=== PATIENT | male | born 2000 | race Caucasian/White ===

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

== ENCOUNTER → 2022-01-01 07:12 | Outpatient (CLI) | payer OTHER, SELFPAY ==
[2022-01-01 08:08] LABS: COVID19 -Nasal RAPID Negative (Negative)
== END ==
PROVIDERS: Family Provider Family Medicine; PCP Registered Nurse Diabetes Educator; Visit Provider Physician Assistant
DX: Z20.822 Contact with and (suspected) exposure to COVID-19 (principal)
CPT/HCPCS: 87635

== ENCOUNTER → 2022-01-05 12:00 | Outpatient (CLI) | payer OTHER, SELFPAY | PROVIDERS: Family Provider Family Medicine; PCP Registered Nurse Diabetes Educator; Visit Provider Nurse Practitioner Family | DX: J02.9 Acute pharyngitis, unspecified (principal) | CPT/HCPCS: 87070 ==

== ENCOUNTER → 2022-03-06 18:03 | Outpatient (CLI) | payer OTHER, SELFPAY ==
[2022-03-06 19:26] LABS: Influenza A - CEPHEID Flu A NEGATIVE (NEGATIVE); Influenza B - CEPHEID Flu B NEGATIVE (NEGATIVE)
[2022-03-06 19:32] LABS: COVID-19 CEPHEID PCR (VTM/NP) POSITIVE (Negative)
== END ==
PROVIDERS: Family Provider Family Medicine; PCP Registered Nurse Diabetes Educator; Visit Provider Nurse Practitioner Family
DX: U07.1 COVID-19 (principal); R05.9 Cough, unspecified
CPT/HCPCS: 0240U

== ENCOUNTER → 2022-03-06 18:11 | Outpatient (CLI) | payer OTHER, SELFPAY ==
--- NOTE | 2022-03-06 18:13 | DI.RAD.S_ITS ---
PROCEDURE: XR CHEST 2V INDICATIONS: cough TECHNIQUE: 2 views of the chest were acquired. COMPARISON: [facility], , CHEST 2 VIEW, 12/27/2015, 19:12. FINDINGS: Surgical changes and devices: None. Lungs and pleura: Lungs are clear. No pleural effusions or pneumothorax. Mediastinum: Mediastinal contours are normal. Heart size is normal. Bones and chest wall: No suspicious bony abnormalities. Soft tissues appear unremarkable. IMPRESSION: No acute cardiopulmonary disease. Dictated by: Smita Lowe M.D. on 03/06/2022 at 20:46 Approved by: Smita Lowe M.D. on 03/06/2022 at 20:46
== END ==
PROVIDERS: Family Provider Family Medicine; PCP Registered Nurse Diabetes Educator; Referring Provider Nurse Practitioner Family; Visit Provider Nurse Practitioner Family
DX: U07.1 COVID-19 (principal); R05.9 Cough, unspecified
CPT/HCPCS: 0240U; 71046

== ENCOUNTER 2022-07-21 17:44 | Emergency (ER) | payer OTHER, SELFPAY ==
--- NOTE | 2022-07-21 17:51 | DI.RAD.S_ITS ---
PROCEDURE: XR CHEST 1V INDICATIONS: Cough TECHNIQUE: One view of the chest was acquired. COMPARISON: [facility], CHEST 2 VIEW, 12/27/2015, 19:12. [facility], , XR CHEST 2V, 03/06/2022, 18:08. FINDINGS: Surgical changes and devices: None. Lungs and pleura: Lungs are clear. No pleural effusions or pneumothorax. Mediastinum: Mediastinal contours appear normal. Heart size is normal. Bones and chest wall: No suspicious bony lesions. Overlying soft tissues appear unremarkable. IMPRESSION: No significant plain film abnormality is identified. Dictated by: Jamie Guerra M.D. on 07/21/2022 at 17:38 Approved by: Jamie Guerra M.D. on 07/21/2022 at 17:38
[2022-07-21 18:03] VITALS: BP 128/86; PULSE 59; RESP 20; TEMP 36.6; O2SAT 99; BMI 27.3
--- NOTE | 2022-07-21 18:42 | PC.NURSE ---
COPPER exposure Spoke w/ poison control who states: low risk because it has to be at a high temp to volitize. Local irritation only expected. Supportive care. 02 prn, Use inhaled albuterol, systemic cortico steroids if severe bronchospasm. Eye exam, eye flush.
--- NOTE | 2022-07-21 19:09 | ED.GENADULT ---
HPI - General Adult General Chief complaint: Environmental Exposure Stated complaint: David exposure cough Time Seen by Provider: 07/21/22 18:45 Source: patient Mode of arrival: Family Vehicle History of Present Illness HPI narrative: Patient is a otherwise healthy 22-year-old male. Approximately 4 days ago while at work he was exposed to copper paint. 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 There was a boat that had a tent around the bottom of it and had had pain that contained copper sand off of it. He states he had to go inside the tendon order to move the boat. He states that while doing that 1 of the straps caused some of the powder/paint that was on the ground to come up. Since that time he has had some eye irritation but he states that is currently better. He also feels some heaviness in his chest. He also touched the paint. He has been no skin rashes. He is here today for evaluation. Related Data Home Medications Medication Instructions Recorded Confirmed cholecalciferol (vitamin D3) 125 125 mcg PO DAILY 09/24/21 01/05/22 mcg (5,000 unit) capsule cyanocobalamin (vitamin B-12) 1,000 mcg PO DAILY 09/24/21 01/05/22 1,000 mcg capsule Allergies Allergy/AdvReac Type Severity Reaction Status Date / Time Penicillins Allergy Verified 07/21/22 18:02 Review of Systems Review of Systems ROS Unobtainable: All systems reviewed & are unremarkable except as noted in HPI and below Patient History Medical History Adolescent idiopathic scoliosis of cervicothoracic region (10/15/17) Atypical chest pain Bilateral varicoceles Concussion Pelvic pain in male Surgical History Hx of tonsillectomy No history of previous surgery Family History Mother Age: 43 Heart trouble Grandmother Thyroid disorder Social History marital status: unmarried,single occupational status: employed 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 Smoking Status: Never smoker alcohol intake: never caffeine: No Type(s) of exercise: weight lifting frequency: 5-6 times per week duration: 45-60 minutes/day Smoking Status: Never smoker alcohol intake frequency: 0-2 drinks per day Substance Use Type: does not use Exam Initial Vital Signs Initial Vital Signs: Vital Signs Temperature 97.9 F 07/21/22 18:03 Pulse Rate 59 L 07/21/22 18:03 Respiratory Rate 20 07/21/22 18:03 Blood Pressure 128/86 07/21/22 18:03 Pulse Oximetry 99 07/21/22 18:03 Oxygen Delivery Method 07/21/22 18:03 Const General: cooperative HENMT Head: normal to inspection and normocephalic Eyes General: Yes appearance normal, both eyes and all related structures Resp Effort & Inspection: normal respiratory effort Auscultation: clear to auscultation bilaterally Cardio Rate: regular rate Rhythm: regular rhythm Skin General: no rashes or lesions noted Neuro General: patient alert, patient awake and moves all extremities Extrem General: normal to inspection and capillary refill normal Psych Appearance: grossly normal and well kempt Course Orders Ordered: Discontinued Medications Albuterol (Albuterol Hfa Mdi 60 Puff/8 Gm Inhaler) 2 puff INH NOW ONE Stop: 07/21/22 19:11 Last Admin: 07/21/22 19:34 Dose: 2 puff Documented By: CANDACE Vital Signs Vital signs: Vital Signs - 8 hr 07/21/22 18:03 Temperature 97.9 F Pulse Rate 59 L Respiratory Rate 20 Blood Pressure 128/86 Pulse Oximetry 99 Oxygen Delivery Method Room Air Medical Decision Making Imaging Data Chest x-ray: Radiologist's Impression: [address] [address] XRay Report Signed Patient: Venu Arroyo MR#: [id number] : 2000 Acct:[id number] Age/Sex: 22 / M Date of Service: 07/21/22 Loc: ED Accession Number: [id number] ?? Procedure: XR chest 1V Ordering Provider: Brandi Connolly D.O. PROCEDURE:? XR CHEST 1V ? INDICATIONS:? Cough ? TECHNIQUE:? One view of the chest was acquired.? ? COMPARISON:? [facility], CR, CHEST 2 VIEW, 12/27/2015, 19:12.? [facility], JAMES, XR CHEST 2V, 03/06/2022, 18:08. ? FINDINGS:? ? Surgical changes and devices:? None.? ? Lungs and pleura:? Lungs are clear.? No pleural effusions or pneumothorax.? ? Mediastinum:? Mediastinal contours appear normal.? Heart size is normal.? ? Bones and chest wall:? No suspicious bony lesions.? Overlying soft tissues appear unremarkable.? IMPRESSION:? No significant plain film abnormality is identified. ? ? Dictated by: Jamie Guerra M.D. on 07/21/2022 at 17:38 ? ? Approved by: Jamie Guerra M.D. on 07/21/2022 at 17:38?? ECG Data Attestation: I personally reviewed and interpreted this ECG as follows: Interpretation: Sinus rhythm Ventricular rate is 62 Normal axis Normal QRS Normal QTC No ST T wave changes MDM Narrative Medical decision making narrative: Patient's exposure was 4 days ago. He initially had some eye discomfort but per his report that is improved. His lungs are clear. Chest x-ray is unremarkable. Albuterol here in the ER did not improve and if his chest tightness. He is no skin rashes. We did discuss the case poison control who stated that this was a low risk exposure and only symptom treatment was needed. I discussed this with the patient. No further workup required in the emergency department. He was given return precautions. He expressed understanding and agreement. Discharge Plan Departure Patient Disposition: Home Clinical Impression: Occupational exposure in workplace Activity Restrictions/Additional Instructions: Use the albuterol inhaler as needed over the next couple days like we discussed. He have no restrictions on any of your activities. Contact your primary doctor for a follow-up. Return to the emergency department for any new or worsening symptoms. Prescriptions: No Action cholecalciferol (vitamin D3) 125 mcg (5,000 unit) capsule 125 mcg PO DAILY cyanocobalamin (vitamin B-12) 1,000 mcg capsule 1,000 mcg PO DAILY Referrals: Garett Lacey ARNP [Primary Care Provider] - Visit Report Forms: Patient Portal/API
--- NOTE | 2022-07-21 19:30 | PC.NURSE ---
Pt declined eye flush-- states exposure occurred on . Dr Nelson aware
[2022-07-21] MEDS: ALBUTEROL HFA MDI 60 PUFF/8 GM INHALER INH (19:34)
== END 2022-07-21 20:04 | disposition home or self-care (01) ==
PROVIDERS: Emergency Provider Emergency Medicine; Family Provider Family Medicine; PCP Registered Nurse Diabetes Educator
DX: Z57.5 Occupational exposure to toxic agents in other industries (principal); R05.9 Cough, unspecified; R07.89 Other chest pain; Y99.0 Civilian activity done for income or pay
CPT/HCPCS: 71045; 93005; 99283; A9270

== ENCOUNTER → 2022-10-20 07:52 | Outpatient (CLI) | payer OTHER, SELFPAY ==
[2022-10-20 09:58] LABS: Erythrocyte Sedimentation Rate 2 MM/HR (0-15)
[2022-10-20 10:05] LABS: Triglycerides 34 mg/dL (35-150)
[2022-10-20 10:13] LABS: C-Reactive Protein Quant < 0.5 mg/dL (<1.0); Cholesterol 142 mg/dL (140-199); HDL Cholesterol 52 mg/dL (40-60); LDL Cholesterol Calculated 83 mg/dL (<100)
== END ==
PROVIDERS: Family Provider Family Medicine; PCP Registered Nurse Diabetes Educator; Referring Provider Internal Medicine Cardiovascular Disease; Visit Provider Internal Medicine Cardiovascular Disease
DX: R07.89 Other chest pain (principal)
CPT/HCPCS: 36415; 80061; 85651; 86140

== ENCOUNTER → 2023-01-26 10:17 | Outpatient (CLI) | payer OTHER, SELFPAY ==
[2023-01-26 11:05] LABS: COVID-19 CEPHEID 4-PLEX PCR POSITIVE (Negative); Influenza A - CEPHEID Flu A NEGATIVE (NEGATIVE); Influenza B - CEPHEID Flu B NEGATIVE (NEGATIVE); Respiratory Syncytial Virus Negative (Negative)
== END ==
PROVIDERS: Family Provider Family Medicine; PCP Registered Nurse Diabetes Educator; Visit Provider Physician Assistant
DX: U07.1 COVID-19 (principal); B34.9 Viral infection, unspecified; Z20.822 Contact with and (suspected) exposure to COVID-19
CPT/HCPCS: 0241U

== ENCOUNTER 2023-01-29 20:04 | Emergency (ER) | payer OTHER, SELFPAY ==
[2023-01-29 20:10] VITALS: BP 173/89; PULSE 66; RESP 15; TEMP 36.4; O2SAT 96; BMI 27.8
[2023-01-29 20:12] VITALS: BP 173/89; PULSE 61; O2SAT 97
--- NOTE | 2023-01-29 20:16 | ED_ITS ---
HPI - General Adult General Chief complaint: Headache Stated complaint: headache since 01/16/23 Time Seen by Provider: 01/29/23 20:07 History of Present Illness HPI narrative: 22-year-old male nonsmoker with noncontributory chronic medical history presents with with a chief complaint of a generalized headache that has been present off and on for about the past 2 weeks. He denies what was happening when it started but states that it has largely been in the left side of his head and without obvious provocation, palliation or radiation. He denies any blurred vision or trouble with speech. He denies any neck pain but does have some general malaise, body aches and has felt feverish. He was seen and evaluated walk-in clinic a few days ago and tested positive for COVID. He states he is felt a bit off at times confused, forgetting what he was doing and some common words that would normally not give him difficulty. He has no chest pain or shortness of breath. He denies vomiting or diarrhea. Related Data Home Medications Medication Instructions Recorded Confirmed cholecalciferol (vitamin D3) 125 125 mcg PO DAILY 09/24/21 01/26/23 mcg (5,000 unit) capsule cyanocobalamin (vitamin B-12) 1,000 mcg PO DAILY 09/24/21 01/26/23 1,000 mcg capsule Allergies Allergy/AdvReac Type Severity Reaction Status Date / Time Penicillins Allergy Verified 01/29/23 20:15 Review of Systems Review of Systems Narrative: GENERAL: See HPI HEENT: See HPI RESPIRATORY: Denies dyspnea, cough, wheezing, hemoptysis, sputum. CARDIOVASCULAR: Denies chest pain, palpitations, orthopnea, edema, GASTROINTESTINAL: Denies nausea, vomiting, abdominal pain, diarrhea, constipation, melena. : Denies dysuria, frequency, incontinence, hematuria, urinary retention. MUSCULOSKELETAL: denies weakness, joint pain, or bony pain SKIN: Denies rash, skin lesions, or other NEUROLOGIC: See HPI PSYCHIATRIC: No concerning psychosocial issues. 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 Well-developed patient, in mild distress. Anxious HEAD: Atraumatic. Normocephalic. EYES: Pupils equal round and reactive. Extraocular motions intact. No scleral icterus. No injection or drainage. No nystagmus ENT: Nose without bleeding, purulent drainage. Throat without erythema, tonsillar hypertrophy or exudate. Airway patent. Right TM with minimal clear effusion without bulging or erythema NECK: Trachea midline. Non tender, no meningeal signs CARDIOVASCULAR: Regular rate and rhythm without murmurs, gallops, or rubs. RESPIRATORY: Clear to auscultation. Breath sounds equal bilaterally. No wheezes, rales, or rhonchi. GASTROINTESTINAL: Abdomen soft, non-tender, nondistended. EXTREMITIES: No edema or joint tenderness. BACK: Nontender without deformity or crepitance. No flank tenderness. NEURO: AOx3. Cranial nerves 2-12 grossly intact SKIN: No rash or erythema of visible areas NIH Stroke Scale 1a. LOC: Patient is alert and keenly responsive (0) 1b. LOC Questions: Patient answers both LOC questions accurately (0) 1c. LOC Commands: Patient performs both tasks correctly (0) 2. Best Gaze: Normal (0) 3. Visual: No visual loss (0) 4. Facial palsy: Normal symmetrical movements (0) 5. Motor arm: No drift (0) 6. Motor leg: No drift (0) 7. Limb ataxia: Absent (0) 8. Sensory: Normal (0) 9. Best language: No aphasia; normal (0) 10. Dysarthria: Normal (0) 11. Extinction and inattention: No abnormality (0) NIHSS: 0 Initial Vital Signs Initial Vital Signs: Vital Signs Temperature 97.6 F 01/29/23 20:10 Pulse Rate 66 01/29/23 20:10 Respiratory Rate 15 01/29/23 20:10 Blood Pressure 173/89 H 01/29/23 20:10 Pulse Oximetry 96 01/29/23 20:10 Oxygen Delivery Method Room Air 01/29/23 20:10 Course Orders Ordered: ED Orders 01/29/23 20:30 Complete Blood Count AUTO DIFF Stat Comprehensive Metabolic Panel Stat 01/29/23 23:44 CT head/brain wo con Stat Discontinued Medications Lactated Ringer's (Lactated Ringers) 1,000 mls @ 1,000 mls/hr IV BOLUS ONE Stop: 01/29/23 21:15 Last Infusion: 01/29/23 21:48 Dose: 0 mls/hr Documented By: Admin: 01/29/23 20:42 Dose: 1,000 mls/hr Documented By: AKHIL Ketorolac Tromethamine (Ketorolac 30 Mg/Ml Vial) 15 mg IV NOW ONE Stop: 01/29/23 20:17 Last Admin: 01/29/23 20:40 Dose: 15 mg Documented By: AKHIL Meclizine HCl (Meclizine Hcl 12.5 Mg Tablet) 50 mg PO NOW ONE Stop: 01/29/23 22:05 Last Admin: 01/29/23 22:51 Dose: 50 mg Documented By: MENDOZA Metoclopramide HCl (Metoclopramide 10 Mg/2 Ml Inj) 10 mg IV NOW ONE Stop: 01/29/23 20:17 Last Admin: 01/29/23 20:40 Dose: 10 mg Documented By: AKHIL Reevaluation(s) Reevaluation #1: Patient has complete resolution headache after fluids, Toradol and Reglan though still does have some dizziness, meclizine ordered Reevaluation #2: Dizziness improved but not completely after meclizine. We discussed the risks a nd benefits advanced imaging in the form of a CT and elect to perform scan Vital Signs Vital signs: Vital Signs - 8 hr 01/29/23 20:10 01/29/23 20:12 01/29/23 20:12 Temperature 97.6 F Pulse Rate 66 61 Respiratory Rate 15 Blood Pressure 173/89 H 173/89 H Pulse Oximetry 96 97 Oxygen Delivery Method Room Air 01/30/23 01:38 Temperature 97.5 F L Pulse Rate 53 L Respiratory Rate 18 Blood Pressure 135/59 L Pulse Oximetry 100 Oxygen Delivery Method Room Air Medical Decision Making Lab Data 01/29/23 20:30 01/29/23 20:30 Labs: Lab Results 01/29/23 01/29/23 Range/Units 20:30 20:30 WBC 5.8 (4.5-11.0) X10^3/uL RBC 5.01 (4.5-5.9) X10^6/uL Hgb 14.7 (13.5-17.5) g/dL Hct 42.7 (41-53) % MCV 85.1 (80-100) fL MCH 29.3 (26-34) PG MCHC 34.4 (30-36) % RDW 13.2 (11.6-14.8) % Plt Count 263 (150-400) X10^3/uL Neut % (Auto) 39.1 L (50-75) % Lymph % (Auto) 48.6 H (25-40) % Mayes % (Auto) 10.3 (3-14) % Eos % (Auto) 1.8 L (2-4) % Baso % (Auto) 0.2 (0-2) % Neut # (Auto) 2300 (0119-0754) /uL Lymph # (Auto) 2800 (5980-8117) /uL Mayes # (Auto) 600 (0-900) /uL Eos # (Auto) 100 (0-450) /uL Baso # (Auto) 0 (0-100) /uL Sodium 139 (137-145) mmol/L Potassium 4.1 (3.4-5.1) mmol/L Chloride 101 (98-107) mmol/L Carbon Dioxide 29 (22-32) mmol/L BUN 15 (9-20) mg/dL Creatinine 0.84 (0.66-1.25) mg/dL Estimated GFR > 60 (>60) mL/min BUN/Creatinine Ratio 17.9 (6-22) Glucose 95 (70-100) mg/dL Calcium 9.2 (8.4-10.2) mg/dL Total Bilirubin 0.3 (0.2-1.3) mg/dL AST 24 (17-59) IU/L ALT 20 (<50) IU/L Alkaline Phosphatase 58 (38-126) U/L Total Protein 7.2 (6.3-8.2) g/dL Albumin 4.3 (3.5-5.0) g/dL Globulin 2.9 (1.7-4.1) g/dL Albumin/Globulin Ratio 1.5 (1.0-2.8) MDM Narrative Medical decision making narrative: CC: 22-year-old male with headache off and on for upwards of 2 weeks and new diagnosis of COVID with dizziness Complicating co-morbidities: None known Data collected from: Patient Medical records reviewed: Prior notes reviewed in our EMR Differential considered, but not limited to: COVID, dehydration, electrolyte abnormality, meningitis, sinusitis, otitis versus other Exam documented above, pertinent findings include: No nystagmus, cranial nerves intact, normal NIH, small effusion right tympanic membrane, heart rate regular, lungs clear, abdomen soft, GCS 15, no meningeal signs Lab Test results independently reviewed as above. Pertinent findings: No leukocytosis or left shift, no signs of anemia electrolytes stable, renal function stable Independently reviewed EKG as above Imaging studies independently reviewed: Head CT with sinus disease Scores Used: NIHSS Treatments: Saline, toradol, reglan Re-evaluations: significant improvement Discussion: Patient with headache off and on over the past 10 days without high-risk features and complete improvement with fluids and Toradol as well as dizziness in the setting of COVID. Imaging demonstrates evidence of sinus disease and there is a small right-sided effusion behind tympanic membrane. He has significant improvement symptoms with above-stated therapies. There is no evidence of meningitis, patient is awake, alert and oriented, no fever, no neck pain or meningeal signs. We did discuss the possible utility of performing a lumbar puncture but were quick to agree, with the mother at the bedside that this is not worth the risk at this point in time. Meningitis is extremely unlikely given the patient's history and physical Disposition: see below, along with detailed discharge instructions that have been reviewed with patient as well as indications for ED re-evaluation and additional outpatient follow up Discharge Plan Departure Patient Disposition: Home Clinical Impression: COVID-19 Instructions: COVID-19 Activity Restrictions/Additional Instructions: *You have been diagnosed with [headache and dizziness likely a consequence from COVID and sinus fluid] *What to do: *Please continue to take your regular medications as directed. *Please follow up with your primary care provider in 2-3 days, call for an appointment. Let them know you were seen in the Emergency Department and that we ask that you be seen in follow up. We will electronically transmit a record of today's note if your PCP is in our system *If you do not have a primary care provider please contact the [facility] Resource line at [phone]. They will ask some questions about your medical history and help get you set up with a doctor in the community. *Return to Emergency Department if you should have any new, worsening or concerning symptoms, such as [fever greater than 101 F, shaking chills, wors ening pain, persistent vomiting or other bothersome symptoms] Prescriptions: No Action cholecalciferol (vitamin D3) 125 mcg (5,000 unit) capsule 125 mcg PO DAILY cyanocobalamin (vitamin B-12) 1,000 mcg capsule 1,000 mcg PO DAILY Referrals: Garett Lacey ARNP [Primary Care Provider] - Stand Alone Forms: Patient Portal/API
[2023-01-29 20:39] LABS: Add Manual Diff / Slide Review NO; Basophils Absolute Auto 0 /uL (0-100); Basophils Percent Auto 0.2 % (0-2); Eosinophils Absolute Auto 100 /uL (0-450); Eosinophils Percent Auto 1.8 % (2-4); Hematocrit 42.7 % (41-53); Hemoglobin 14.7 g/dL (13.5-17.5); Lymphocytes Absolute Auto 2800 /uL (1100-4500); Lymphocytes Percent Auto 48.6 % (25-40); Mean Corpuscular HGB Conc 34.4 % (30-36); Mean Corpuscular Hemoglobin 29.3 PG (26-34); Mean Corpuscular Volume 85.1 fL (80-100); Monocytes Absolute Auto 600 /uL (0-900); Monocytes Percent Auto 10.3 % (3-14); Neutrophils Absolute Auto 2300 /uL (1500-7000); Neutrophils Percent Auto 39.1 % (50-75); Platelet Count 263 X10^3/uL (150-400); Red Blood Cell Count 5.01 X10^6/uL (4.5-5.9); Red Cell Distribution Width 13.2 % (11.6-14.8); White Blood Cell Count 5.8 X10^3/uL (4.5-11.0)
[2023-01-29] MEDS: KETOROLAC 30 MG/ML VIAL 15 MG IV (20:40)
[2023-01-29] MEDS: METOCLOPRAMIDE 10 MG/2 ML INJ IV (20:40)
[2023-01-29] MEDS: LACTATED RINGERS 1,000 ML 1000 ML IV (20:42)
[2023-01-29 20:54] LABS: Alanine Aminotransferase 20 IU/L (<50); Albumin 4.3 g/dL (3.5-5.0); Albumin Globulin Ratio 1.5 (1.0-2.8); Alkaline Phosphatase 58 U/L (38-126); Aspartate Aminotransferase 24 IU/L (17-59); BUN Creatinine Ratio 17.9 (6-22); Bilirubin Total 0.3 mg/dL (0.2-1.3); Blood Urea Nitrogen 15 mg/dL (9-20); Calcium 9.2 mg/dL (8.4-10.2); Carbon Dioxide 29 mmol/L (22-32); Chloride 101 mmol/L (98-107); Estimated Glomerular Filt Rate > 60 mL/min (>60); Globulin 2.9 g/dL (1.7-4.1); Glucose 95 mg/dL (70-100); HEMOLYSIS 15 (0-50); Potassium 4.1 mmol/L (3.4-5.1); Sodium 139 mmol/L (137-145); Total Protein 7.2 g/dL (6.3-8.2)
[2023-01-29] MEDS: MECLIZINE HCL 12.5 MG TABLET 50 MG PO (22:51)
--- NOTE | 2023-01-29 23:44 | DI.CT.S_ITS ---
PROCEDURE: CT HEAD/BRAIN WO CON INDICATIONS: headache, dizziness, sudden onset TECHNIQUE: Noncontrast 4.5 mm thick angled axial sections acquired from the foramen magnum to the vertex, with coronal and sagittal reformats. For radiation dose reduction, the following was used: automated exposure control, adjustment of mA and/or kV according to patient size. COMPARISON: None. FINDINGS: Image quality: Excellent. CSF spaces: Basal cisterns are patent. No extra-axial fluid collections. Ventricles are normal in size and shape. Brain: No intracranial hemorrhage, mass, or mass effect. Casiano-white matter interface appears preserved. Skull and face: Calvarium and visualized facial bones are intact, without suspicious lesions. Sinuses: Visualized sinuses demonstrate mild mucosal thickening within the ethmoid and maxillary sinuses. A small air-fluid levels demonstrated within the right maxillary sinus suggestive of acute sinusitis. IMPRESSION: 1. No acute intracranial abnormality. 2. Mild sinus mucosal disease with a small air-fluid level in the right maxillary sinus which may reflect mild acute sinusitis. Dictated by: Cornelio Luciano M.D. on 01/30/2023 at 0:44 Approved by: Cornelio Luciano M.D. on 01/30/2023 at 0:45
[2023-01-30 01:38] VITALS: BP 135/59; PULSE 53; RESP 18; TEMP 36.4; O2SAT 100
== END 2023-01-30 01:43 | disposition home or self-care (01) ==
PROVIDERS: Emergency Provider Emergency Medicine; Family Provider Family Medicine; PCP Registered Nurse Diabetes Educator
DX: U07.1 COVID-19 (principal)
CPT/HCPCS: 36415; 70450; 80053; 85025; 96361; 96374; 96375; 99284; J1885; J2765